=== PATIENT | female | born 1995 | race Caucasian/White ===

== ENCOUNTER 2021-03-05 08:55 | Observation (INO) ==
--- NOTE | 2021-03-05 09:19 | Emergency Department Note ---
History of Present Illness General Chief complaint: Rectal Pain Stated complaint: HEMERRHOIDS,HARD LUMP NEAR RECTUM Time Seen by Provider: 03/05/21 09:07 Source: patient Mode of arrival: ambulatory Limitations: no limitations History of Present Illness Provider complaint: Rectal pain Maximum Pain Intensity: 8 This is a 25-year-old female who presents to the ED with a chief complaint of pain in the posterior rectal area. She states the pain is between the anus and the tailbone. She states that it has been intermittently bothering her for the past week. Certain positions seem to bother her more. Touching the area also seems to bother her more. She also noticed a lump near her anus. She has a history of hemorrhoids. Denies any other complaints at this time. Home Medications Medication Instructions Recorded Confirmed Type Control 1 tab PO HS 03/05/21 03/05/21 History ibuprofen 200 mg PO Q6H PRN 03/05/21 03/05/21 History sucralfate 5 ml PO QID 03/05/21 03/05/21 History Allergies Allergy/AdvReac Type Severity Reaction Status Date / Time No Known Allergies Allergy Unverified 03/05/21 10:41 Past Med/Surg History Social History Smoking Status: Never smoker Feels Safe at Home: Yes Review of Systems A total of 10 systems reviewed and were otherwise negative Physical Exam Vital Signs Vital Signs - 24 hr 03/05/21 09:02 03/05/21 10:43 Temperature 36.2 C L Temperature Source Temporal Artery Scan Pulse Rate 100 H Pulse Rate [Right Finger] 103 H Pulse Rhythm [Right Finger] Regular Pulse Strength [Right Finger] Normal Respiratory Rate 16 20 Respiratory Effort / Characteristics Non-Labored Spontaneous Respiratory Depth Normal Respiratory Pattern Regular Blood Pressure 179/109 H Blood Pressure [Right Arm] 154/102 H Blood Pressure Mean 132 Blood Pressure Mean [Right Arm] 119 Blood Pressure Position [Right Arm] Sitting Pulse Oximetry 100 98 Oxygen Delivery Method Room Air Sepsis Recent Fever Within 48 Hours No Sepsis New/Unexplained Change in Mental Status No Sepsis Action Taken by Nursing No Action Required CONSTITUTIONAL/VITAL SIGNS: Reviewed / noted above. GENERAL: Non-toxic in appearance. INTEGUMENTARY: Warm, dry, and [place]. HEAD: Normocephalic. EYES: without scleral icterus or trauma. ENT/OROPHARYNX: clear and moist. LYMPHADENOPATHY/NECK: Is supple without lymphadenopathy or meningismus. RESPIRATORY: Lungs clear and equal. CARDIOVASCULAR: Regular rate and rhythm. GI/ABDOMEN: Soft and nontender. No organomegaly or pulsatile mass. No rebound or guarding. Normal bowel sounds. EXTREMITIES: Warm and well perfused. BACK: No CVA tenderness. NEUROLOGICAL: Intact without focal deficits. PSYCHIATRIC: normal affect. MUSCULOSKELETAL: Normally developed with good muscle tone. Rectal area: There is a small nonengorged hemorrhoid at the 5 o'clock position. This is noninflamed or irritated. There is some tissue thickening and tenderne ss to palpation of the tissue between the anus and the coccyx. No erythema or warmth. No obvious visible change. TRIAGE NURSING DOCUMENTATION REVIEWED. Course Administered Medications Discontinued Medications Ioversol (Optiray 320 100ml) 89 ml IV ONCE ONE Stop: 03/05/21 10:35 Last Admin: 03/05/21 10:35 Dose: 89 ml Documented by: [id number] Medical Decision Making Differential Diagnosis Differential includes perirectal abscess, rectal abscess, hemorrhoid, infection/cellulitis, trauma Medical Records Attestation: I reviewed the patient's medical records. Home Medications Current Medication List: was personally reviewed by me Laboratory Data Attestation: I reviewed the patient's lab results. Result diagrams: 03/05/21 09:32 03/05/21 09:32 Lab Results 03/05/21 03/05/21 03/05/21 Range/Units 09:32 09:32 09:54 WBC 12.84 H (4.8-10.8) K/uL RBC 4.36 (4.2-5.4) M/uL Hgb 12.2 (12.0-16.0) g/dL Hct 36.3 L (37-47) % MCV 83.3 (80-100) fL MCH 28.0 (25-34) pg MCHC 33.6 (32-36) g/dL RDW Std Deviation 40.5 (36.4-46.3) fL RDW Coeff of Sarbjit 13.3 (11.5-14.5) % Plt Count 328 (130-400) K/uL MPV 11.4 H (7.4-10.4) fL Immature Gran % (Auto) 0.3 % Neut % (Auto) 72.6 % Lymph % (Auto) 20.2 % [place] % (Auto) 6.0 % Eos % (Auto) 0.7 % Baso % (Auto) 0.2 % Neut # (Auto) 9.33 H (1.4-6.5) K/uL Lymph # (Auto) 2.59 (1.2-3.4) K/uL [place] # (Auto) 0.77 H (0.11-0.59) K/uL Eos # (Auto) 0.09 (0-0.5) K/uL Baso # (Auto) 0.02 (0-0.2) K/uL Immature Gran # (Auto) 0.04 H (0.00-0.02) K/uL Sodium 138 (136-145) mmol/L Potassium 3.6 (3.5-5.1) mmol/L Chloride 108 H (98-107) mmol/L Carbon Dioxide 22 (21-32) mmol/L Anion Gap 8.0 (3-11) BUN 8 (7-18) mg/dl Creatinine 0.79 (0.6-1.2) mg/dl Est Cr Clr Drug Dosing 139.0 ml/min Est GFR ( Amer) 121.4 ml/min Est GFR (Non-Af Amer) 104.8 ml/min BUN/Creatinine Ratio 10.2 (10-20) Glucose 99 (70-99) mg/dl Calcium 8.7 (8.5-10.1) mg/dl POC Ur Test NEG (NEG) Imaging Data Radiologist's Impression: Pelvis CT 03/05/21 09:13 CT SCAN OF THE PELVIS WITH IV CONTRAST CLINICAL HISTORY: Perirectal pain. COMPARISON STUDY: No priors. TECHNIQUE: Following the IV administration of 89 cc of Optiray 320, CT scan of the pelvis is performed from the pelvic inlet to the proximal femora. Images are reviewed in the axial, sagittal, and coronal planes. IV contrast was administered without complication. A dose lowering technique was utilized adhering to the principles of ALARA. CT DOSE: 1176.82 mGy.cm FINDINGS: The bladder, uterus, and adnexa are normal as visualized noting bilateral ovarian follicles. There is no free fluid in the cul-de-sac. No pelvic sidewall or inguinal lymphadenopathy is identified. Visualized portions of the small bowel and colon are normal in caliber. A normal appendix is identified in the right lower quadrant. No evidence of intraperitoneal free air is seen. There is a 1.7 x 3.8 x 1.4 cm posterior perianal fluid collection. This is best seen on axial image #720, and is located at the 6:00 position. This is located below the levator sling. No fistula is clearly identified. There is only minimal surrounding soft tissue infiltration. The bony pelvis is intact. No lytic or blastic lesion is seen. The joint spaces of the hips are maintained. The sacroiliac joints are normal. The regional musculature is normal and symmetric. IMPRESSION: 1. Findings are consistent with a perianal abscess as detailed above. 2. The pelvic viscera is normal as visualized. ACT 112: Negative or not required by law. Electronically signed by: Tyler See M.D. 03/05/2021 11:13 AM MDM Narrative Patient presents with pain in the posterior rectal region. There is some tenderness noted in the area. CT scan as above shows a perirectal abscess. For blood cell count was 12. Dr. Okeefe has been consulted. He is taking the patient to the OR for abscess drainage. Impression & Plan Abscess, perirectal Discharge Plan Visit Data Chief Complaint: Rectal Pain Stated Complaint: HEMERRHOIDS,HARD LUMP NEAR RECTUM ED Provider: Kyle Boggs Discharge Problem: Abscess, perirectal Patient Disposition: Being Evaluated by Surgeon Forms Stand Alone Forms: [facility] [place] Prescriptions Prescriptions: No Action sucralfate 100 mg/mL Suspension 5 ml PO QID RF: 0 ibuprofen 200 mg Tablet 200 mg PO Q6H PRN (Reason: Pain) RF: 0 Control 1 tab PO HS RF: 0 Referrals Referrals: PCP,NO [Primary Care Provider] -
[2021-03-05 09:41] LABS: Basophils # (auto) 0.02 K/uL (0-0.2); Basophils % (auto) 0.2 %; Eosinophils # (auto) 0.09 K/uL (0-0.5); Eosinophils % (auto) 0.7 %; Hematocrit (blood only) 36.3 % (37-47); Hemoglobin 12.2 g/dL (12.0-16.0); Immature Granulocytes # (auto) 0.04 K/uL (0.00-0.02); Immature Granulocytes % (auto) 0.3 %; Lymphocytes # (auto) 2.59 K/uL (1.2-3.4); Lymphocytes % (auto) 20.2 %; Mean Corpuscular Hgb Conc 33.6 g/dL (32-36); Mean Corpuscular Volume 83.3 fL (80-100); Mean Platelet Volume 11.4 fL (7.4-10.4); Monocytes # (auto) 0.77 K/uL (0.11-0.59); Neutrophils # (auto) 9.33 K/uL (1.4-6.5); Neutrophils % (auto) 72.6 %; Platelet Count 328 K/uL (130-400); RDW Coefficient of Variation 13.3 % (11.5-14.5); RDW Standard Deviation 40.5 fL (36.4-46.3); Red Blood Count 4.36 M/uL (4.2-5.4); White Blood Count 12.84 K/uL (4.8-10.8)
[2021-03-05 09:56] LABS: BUN Creatinine Ratio 10.2 (10-20); Calcium 8.7 mg/dl (8.5-10.1); Est GFR (African American) 121.4 ml/min; Est GFR (Non-African American) 104.8 ml/min; Potassium 3.6 mmol/L (3.5-5.1)
[2021-03-05] MEDS ORDERED: OPTIRAY 320 100ml IV ONE (10:34)
--- NOTE | 2021-03-05 11:14 | CT Scan Report ---
CT SCAN OF THE PELVIS WITH IV CONTRAST CLINICAL HISTORY: Perirectal pain. COMPARISON STUDY: No priors. TECHNIQUE: Following the IV administration of 89 cc of Optiray 320, CT scan of the pelvis is performe d from the pelvic inlet to the proximal femora. Images are reviewed in the axial, sagittal, and coron al planes. IV contrast was administered without complication. A dose lowering technique was utilized adhering to the principles of ALARA. CT DOSE: 1176.82 mGy.cm FINDINGS: The bladder, uterus, and adnexa are normal as visualized noting bilateral ovarian follicles. There is no free fluid in the cul-de-sac. No pelvic sidewall or inguinal lymphadenopathy is identified. Visua lized portions of the small bowel and colon are normal in caliber. A normal appendix is identified in the right lower quadrant. No evidence of intraperitoneal free air is seen. There is a 1.7 x 3.8 x 1.4 cm posterior perianal fluid collection. This is best seen on axial image # 720, and is located at the 6:00 position. This is located below the levator sling. No fistula is ghazal rly identified. There is only minimal surrounding soft tissue infiltration. The bony pelvis is intact. No lytic or blastic lesion is seen. The joint spaces of the hips are maint ained. The sacroiliac joints are normal. The regional musculature is normal and symmetric. IMPRESSION: 1. Findings are consistent with a perianal abscess as detailed above. 2. The pelvic viscera is normal as visualized. ACT 112: Negative or not required by law. Electronically signed by: Tyler See M.D. 03/05/2021 11:13 AM
--- NOTE | 2021-03-05 13:55 | Surgery Consultation ---
Date of Consultation March 05, 2021 Assessment & Plan (1) Abscess, perirectal: pt is a 25 year-old female who presents to ER with one week history rectal pain, IMP; perirectal abscess Plan, I recommend to do I/D perirectal abscess, D/W benefits, risks and alternatives of the surgery, the risks - infection, bleeding sepsis, recurrence, pt understood, she agrees with the surgery, I answered all questions, pre-op antibiotic, Present on Admission?: Yes History of Present Illness History of Present Illness History of Present Illness General Chief complaint: Rectal Pain Stated complaint: HEMERRHOIDS,HARD LUMP NEAR RECTUM Time Seen by Provider: 03/05/21 09:07 Source: patient Mode of arrival: ambulatory Limitations: no limitations History of Present Illness Provider complaint: Rectal pain Maximum Pain Intensity: 8 This is a 25-year-old female who presents to the ED with a chief complaint of pain in the posterior rectal area. She states the pain is between the anus and the tailbone. She states that it has been intermittently bothering her for the past week. Certain positions seem to bother her more. Touching the area also seems to bother her more. She also noticed a lump near her anus. She has a history of hemorrhoids. Denies any other complaints at this time. I ( Kat Okeefe MD) got a call for consult perirectal abscess, I reviewed pt's H/P, labs, CT scan with pt, Home Medications Medication Instructions Recorded Confirmed Type Control 1 tab PO HS 03/05/21 03/05/21 History ibuprofen 200 mg PO Q6H PRN 03/05/21 03/05/21 History sucralfate 5 ml PO QID 03/05/21 03/05/21 History Allergies Allergy/AdvReac Type Severity Reaction Status Date / Time No Known Allergies Allergy Unverified 03/05/21 10:41 Past Med/Surg History Social History Smoking Status: Never smoker Feels Safe at Home: Yes Review of Systems A total of 10 systems reviewed and were otherwise negative Allergies Allergy/AdvReac Type Severity Reaction Status Date / Time No Known Allergies Allergy Unverified 03/05/21 10:41 Home Medications Medication Instructions Recorded Confirmed Type Control 1 tab PO HS 03/05/21 03/05/21 History ibuprofen 200 mg PO Q6H PRN 03/05/21 03/05/21 History sucralfate 5 ml PO QID 03/05/21 03/05/21 History Patient History Medical History (Updated 03/05/21 @ 13:36 by Wally Huang MD) Obesity Social History Smoking Status: Never smoker Feels Safe at Home: Yes Physical Exam Constitutional: WD/WN, vitals as above well developed and well nourished Eyes: PERRL, conjunctivae normal, anicteric sclerae ENMT: external ear and nose normal, oropharynx normal Neck: trachea midline, no thyromegaly Respiratory: normal respiratory effort, lungs clear to auscultation normal respiratory effort Cardiovascular: RRR, no murmur, no edema Rate/Rhythm: regular rate and regular rhythm Gastrointestinal (Abdomen): normal bowel sounds, soft, nontender, no hepatosplenomegaly rectal exam- tenderness at 6 O'clock with redness, Musculoskeletal: no cyanosis or clubbing, extremities motor strength 5/5 Neurologic: awake Psychiatric: Orientation: alert and oriented x 3 Results & Data ([facility]) Vital Signs (Past 12 Hours) Vital Signs Temp Pulse Pulse Resp BP BP Pulse Ox 03/05/21 13:37 107 H 20 139/95 100 03/05/21 11:30 107 H 20 137/97 99 03/05/21 10:43 103 H 20 154/102 H 98 03/05/21 09:02 36.2 C L 100 H 16 179/109 H 100 Laboratory Results Abnormal lab results 03/05/21 03/05/21 Range/Units 09:32 09:32 WBC 12.84 H (4.8-10.8) K/uL Hct 36.3 L (37-47) % MPV 11.4 H (7.4-10.4) fL Neut # (Auto) 9.33 H (1.4-6.5) K/uL [place] # (Auto) 0.77 H (0.11-0.59) K/uL Immature Gran # (Auto) 0.04 H (0.00-0.02) K/uL Chloride 108 H (98-107) mmol/L Diagnostic Findings CT SCAN OF THE PELVIS WITH IV CONTRAST CLINICAL HISTORY: Perirectal pain. COMPARISON STUDY: No priors. TECHNIQUE: Following the IV administration of 89 cc of Optiray 320, CT scan of the pelvis is performed from the pelvic inlet to the proximal femora. Images are reviewed in the axial, sagittal, and coronal planes. IV contrast was administ ered without complication. A dose lowering technique was utilized adhering to the principles of ALARA. CT DOSE: 1176.82 mGy.cm FINDINGS: The bladder, uterus, and adnexa are normal as visualized noting bilateral ovarian follicles. There is no free fluid in the cul-de-sac. No pelvic sidewall or inguinal lymphadenopathy is identified. Visualized portions of the small bowel and colon are normal in caliber. A normal appendix is identified in the right lower quadrant. No evidence of intraperitoneal free air is seen. There is a 1.7 x 3.8 x 1.4 cm posterior perianal fluid collection. This is best seen on axial image #720, and is located at the 6:00 position. This is located below the levator sling. No fistula is clearly identified. There is only minimal surrounding soft tissue infiltration. The bony pelvis is intact. No lytic or blastic lesion is seen. The joint spaces of the hips are maintained. The sacroiliac joints are normal. The regional musculature is normal and symmetric. IMPRESSION: 1. Findings are consistent with a perianal abscess as detailed above. 2. The pelvic viscera is normal as visualized.
[2021-03-05] MEDS ORDERED: ceFAZolin 2000MG 2,000 MG/15 ML SYR IV SCH (13:59)
--- NOTE | 2021-03-05 13:59 | History & Physical Bridge Note ---
Date of Service March 05, 2021 History & Physical Bridge Note I have examined the patient, reviewed the History & Physical and in the interval since the performance of the History & Physical I have noted the following changes of clinical significance: no changes noted
--- NOTE | 2021-03-05 15:09 | Anesthesiology Consultation ---
Date of Service March 05, 2021 Assessment & Plan (1) Encounter for pre-operative examination: Chart Review Chart Review: Acceptable Risk for Surgery History Surgery Operation Date: 03/05/21 07:45 Proposed Procedures p Incision and Drainage Perirectal Abscess - Kat Okeefe MD Height/Weight Height: 5 ft 7 in Weight: 108 kg Allergies Allergy/AdvReac Type Severity Reaction Status Date / Time No Known Allergies Allergy Unverified 03/05/21 10:41 Medications Home Medications Medication Instructions Recorded Confirmed Last Taken Control 1 tab PO HS 03/05/21 03/05/21 03/04/21 ibuprofen 200 mg PO Q6H PRN 03/05/21 03/05/21 03/05/21 05:00 800 mg sucralfate 5 ml PO QID 03/05/21 03/05/21 03/04/21 18:00 5 ml NPO Date Last Intake of Fluids: 03/05/21 Time Last Intake of Fluids: 11:00 Date Last Intake of Solids: 03/05/21 Time Last Intake of Solids: 08:30 Past Medical History Medical History Obesity Social History Smoking Status: Never smoker Physical Exam Vital Signs Last Vital Signs Temp 36.6 C 03/05/21 14:08 Pulse 120 H 03/05/21 14:08 Resp 18 03/05/21 14:08 BP 156/109 H 03/05/21 14:08 Pulse Ox 97 03/05/21 14:08 Testing Laboratory Results 03/05/21 09:32 03/05/21 09:32 03/05/21 09:54 POC Ur Test NEG
[2021-03-05] MEDS ORDERED: KETOROLAC 30 MG/ML VIAL IV PRN (15:37)
[2021-03-05] MEDS ORDERED: ATROPINE SULFATE 0.1 MG/ML 10ML SYR IV PRN (15:37)
[2021-03-05] MEDS ORDERED: LABETALOL HCL IV 5 MG/ML 20ML IV PRN (15:37)
[2021-03-05] MEDS ORDERED: PROMETHAZINE HCL 6.25 MG in SODIUM CHLORIDE 0.9% 50 ML IV PRN (15:37)
[2021-03-05] MEDS ORDERED: ONDANSETRON INJ 2 MG/ML 2 ML VIAL IV PRN ×2 (15:37→19:15)
[2021-03-05] MEDS ORDERED: ONDANSETRON INJ 2 MG/ML 2 ML VIAL ONE (16:05)
[2021-03-05] MEDS ORDERED: MIDAZOLAM HCL 1 MG/ML 2ML VIAL ONE (16:05)
[2021-03-05] MEDS ORDERED: PROPOFOL IV EMULSION 10 MG/ML 20 ML VIAL IV ONE (16:05)
[2021-03-05] MEDS ORDERED: DEXAMETHASONE SOD INJ 4 MG/ML VIAL ONE (16:05)
[2021-03-05] MEDS ORDERED: fentaNYL citrate 100 MCG/2 ML VIAL ONE (16:05)
[2021-03-05] MEDS ORDERED: LIDOCAINE 2% 20 MG/ML 5 ML SYR IV ONE ×2 (16:05→16:07)
[2021-03-05] MEDS ORDERED: GELATIN SPONGE 12-7MM ONE (16:28)
[2021-03-05] MEDS ORDERED: BUPIVACAINE 0.5 % 5 MG/1 ML MPF 30ML VIAL ONE (16:28)
[2021-03-05] MEDS ORDERED: LIDOCAINE 1% LOCAL 20 ML VIAL ONE (16:28)
[2021-03-05] MEDS ORDERED: BACITRACIN OINT 15 GM TUBE ONE (16:56)
--- NOTE | 2021-03-05 17:05 | Post Operative Brief Note ---
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
[2021-03-05] MEDS: fentaNYL citrate 100 MCG/2 ML VIAL IV PRN ×4 (17:25→17:44)
--- NOTE | 2021-03-05 17:57 | Operative Report (OR) ---
DATE OF OPERATION: 03/05/2021 PREOPERATIVE DIAGNOSIS: Perirectal abscess. POSTOPERATIVE DIAGNOSIS: Perirectal abscess. PROCEDURE: Incision and drainage of perirectal abscess. SURGEON: Kat Okeefe MD. ANESTHESIA: General. ESTIMATED BLOOD LOSS: About 5 mL FINDINGS: Perirectal abscess, wound culture sent. COMPLICATIONS: None. INDICATIONS FOR THE PROCEDURE: This is a 25-year-old female who presented to ED with one week history of rectal pain. The patient had a CT scan diagnosis of perirectal abscess. I recommended to do incision and drainage of perirectal abscess. I did talk to the patient about the benefit, the risk, alternate procedure. I indicated the risks may include but not limited such as bleeding, infection, recurrence, may need more procedures, sepsis. The patient understands. She signed informed consent and I answered all questions. DETAILS OF PROCEDURE: After identifying the patient and verifying the procedure, we brought the patient to the OR, put the patient in the supine position. The patient received SCD on bilateral legs to prevent DVT. Also, patient received 2 grams Ancef IV for prophylactic antibiotic and the patient received general anesthesia without difficulty. Then we repositioned, and put the patient on the lithotomy position. Rectal area was prepped and draped in routine sterile fashion. After timeout, then we found the patient had an abscess located at the 6 o'clock with the bulging and then we made about a 1.5 cm incision. The pus immediately came out and we cleaned the pus and was sent to wound culture and then we used the bacitracin with quarter-inch packing, packing the wound. Hemostasis was obtained. Then we put the dressing on. The patient tolerated the procedure well. All instrument, needle and sponge count were correct x2 at the end of the case. The patient transferred to recovery room in stable condition. After the procedure, I did talk to the patient about the OR finding and the procedure we did. The patient understands. I attest to the content of the Intraoperative Record and any orders documented therein. Any exception s are noted below.
--- NOTE | 2021-03-05 18:02 | Anesthesiology Progress Note ---
Date of Service March 05, 2021 Anesthesia Post Procedure Vital Signs Vital Signs: Temp Pulse Pulse Pulse Resp BP BP 03/05/21 17:55 36.7 C 106 H 14 144/92 H 03/05/21 17:45 114 H 16 158/89 H 03/05/21 17:35 103 H 14 143/94 H 03/05/21 17:25 107 H 20 157/97 H 03/05/21 17:16 36.9 C 119 H 15 158/92 H 03/05/21 14:08 36.6 C 120 H 18 156/109 H 03/05/21 13:37 107 H 20 139/95 03/05/21 11:30 107 H 20 137/97 03/05/21 10:43 103 H 20 154/102 H 03/05/21 09:02 36.2 C L 100 H 16 179/109 H Pulse Ox 03/05/21 17:55 95 03/05/21 17:45 100 03/05/21 17:35 98 03/05/21 17:25 100 03/05/21 17:16 99 03/05/21 14:08 97 03/05/21 13:37 100 03/05/21 11:30 99 03/05/21 10:43 98 03/05/21 09:02 100 Pain Intensity Bilateral Rectal: Pain Intensity: 3 Transfer of Care Handoff Completed per policy Notes Mental Status: alert / awake / arousable Patient Amnestic to Procedure: Yes Nausea / Vomiting: adequately controlled Pain: adequately controlled Airway Patency, RR, SpO2: stable & adequate BP & HR: stable & adequate Hydration State: stable & adequate Anesthetic Complications: no major complications apparent
[2021-03-05] MEDS ORDERED: PIPERACILLIN/TAZOBACTAM 3.375 GM in DEXTROSE 5% 100 ML IV SCH (19:15)
[2021-03-05] MEDS ORDERED: HYDROmorphone INJ 0.5 MG/0.5 ML SYR IV PRN (19:15)
[2021-03-05] MEDS ORDERED: PIPERACILL/TAZOBAC CONSULT ACTIVE PRN (19:15)
[2021-03-05] MEDS ORDERED: IBUPROFEN 200 MG TAB PO PRN (19:15)
[2021-03-05] MEDS ORDERED: PIPERACILLIN/TAZOBACTAM 4.5 GM in DEXTROSE 5% 100 ML IV ONE (19:30)
[2021-03-05] MEDS: LACTATED RINGER'S 1,000 ML IV SCH (20:09)
[2021-03-05] MEDS: SUCRALFATE 1 GM/10 ML UDC PO SCH (20:38)
[2021-03-05] MEDS: BIRTH CONTROL - ORDER AWAITING ACTION SCH (23:46)
[2021-03-06] MEDS ORDERED: PIPERACILLIN/TAZOBACTAM 4.5 GM in DEXTROSE 5% 100 ML IV SCH (02:00)
[2021-03-06] MEDS: LACTATED RINGER'S 1,000 ML IV SCH (05:34)
[2021-03-06] MEDS: oxyCODONE/ACETAMINOPHEN 5mg/325mg TAB PO PRN ×2 (05:34→10:26)
[2021-03-06 07:02] LABS: Basophils # (auto) 0.01 K/uL (0-0.2); Basophils % (auto) 0.1 %; Hemoglobin 11.4 g/dL (12.0-16.0); Immature Granulocytes # (auto) 0.02 K/uL (0.00-0.02); Immature Granulocytes % (auto) 0.2 %; Lymphocytes # (auto) 1.81 K/uL (1.2-3.4); Lymphocytes % (auto) 17.3 %; Mean Corpuscular Hemoglobin 27.4 pg (25-34); Mean Corpuscular Hgb Conc 33.5 g/dL (32-36); Mean Corpuscular Volume 81.7 fL (80-100); Mean Platelet Volume 11.6 fL (7.4-10.4); Monocytes # (auto) 0.44 K/uL (0.11-0.59); Monocytes % (auto) 4.2 %; Neutrophils # (auto) 8.18 K/uL (1.4-6.5); Neutrophils % (auto) 78.2 %; Platelet Count 311 K/uL (130-400); RDW Coefficient of Variation 13.2 % (11.5-14.5); RDW Standard Deviation 39.5 fL (36.4-46.3); Red Blood Count 4.16 M/uL (4.2-5.4); White Blood Count 10.46 K/uL (4.8-10.8)
--- NOTE | 2021-03-06 09:29 | Anesthesiology Progress Note ---
Date of Service March 06, 2021 Anesthesia Post Procedure Vital Signs Vital Signs: Temp Pulse Pulse Pulse Resp BP BP 03/06/21 07:25 37.0 C 77 18 127/81 03/06/21 04:37 37.1 C 83 12 03/06/21 00:21 37.1 C 83 03/05/21 22:35 37.1 C 92 H 16 03/05/21 21:33 37 C 106 H 18 03/05/21 20:17 37 C 116 H 22 03/05/21 19:27 36.9 C 114 H 15 03/05/21 19:02 36.9 C 110 H 16 03/05/21 18:30 37.4 C 111 H 18 03/05/21 18:10 107 H 16 03/05/21 17:55 36.7 C 106 H 14 03/05/21 17:45 114 H 16 03/05/21 17:35 103 H 14 03/05/21 17:25 107 H 20 03/05/21 17:16 36.9 C 119 H 15 03/05/21 14:08 36.6 C 120 H 18 03/05/21 13:37 107 H 20 139/95 03/05/21 11:30 107 H 20 03/05/21 10:43 103 H 20 BP Pulse Ox 03/06/21 07:25 99 03/06/21 04:37 145/89 H 99 03/06/21 00:21 121/75 98 03/05/21 22:35 141/84 H 97 03/05/21 21:33 151/98 H 96 03/05/21 20:17 164/111 H 97 03/05/21 19:27 140/87 95 03/05/21 19:02 155/100 H 94 03/05/21 18:30 153/100 H 94 03/05/21 18:10 156/97 H 94 03/05/21 17:55 144/92 H 95 03/05/21 17:45 158/89 H 100 03/05/21 17:35 143/94 H 98 03/05/21 17:25 157/97 H 100 03/05/21 17:16 158/92 H 99 03/05/21 14:08 156/109 H 97 03/05/21 13:37 100 03/05/21 11:30 137/97 99 03/05/21 10:43 154/102 H 98 Pain Intensity Bilateral Rectal: Pain Intensity: 5 Notes Mental Status: alert / awake / arousable and participated in evaluation Patient Amnestic to Procedure: Yes Nausea / Vomiting: adequately controlled Pain: adequately controlled Airway Patency, RR, SpO2: stable & adequate BP & HR: stable & adequate Hydration State: stable & adequate Anesthetic Complications: no major complications apparent
--- NOTE | 2021-03-06 10:12 | Progress Note ---
Date of Service F/U S/P I/D perirectal abscess, POD 1 pt is doing better, less pain, the wound is dry, March 06, 2021 Assessment & Plan (1) Abscess, perirectal: pt is a 25 year-old female who presents to ER with one week history rectal pain, IMP; perirectal abscess Plan, I recommend to do I/D perirectal abscess, D/W benefits, risks and alternatives of the surgery, the risks - infection, bleeding sepsis, recurrence, pt understood, she agrees with the surgery, I answered all questions, pre-op antibiotic, 03/06/2021 10:10AM S/P I/D perirectal abscess, POD 1 doing fine, pt wants to go home today, post-op care instruction was given, F/U [facility] wound care center tomorrow, F/U ks prn, Admission and Anticipated Discharge Date Admission Date: March 05, 2021 Physical Exam Constitutional: WD/WN, vitals as above well developed and well nourished Eyes: PERRL, conjunctivae normal, anicteric sclerae ENMT: external ear and nose normal, oropharynx normal Neck: trachea midline, no thyromegaly Respiratory: normal respiratory effort, lungs clear to auscultation normal respiratory effort Cardiovascular: RRR, no murmur, no edema Rate/Rhythm: regular rate and regular rhythm Gastrointestinal (Abdomen): normal bowel sounds, soft, nontender, no hepatosplenomegaly the wound is dry, no active bleeding, Musculoskeletal: no cyanosis or clubbing, extremities motor strength 5/5 Neurologic: awake Psychiatric: Orientation: alert and oriented x 3 Results & Data ([facility]) Vital Signs (Past 12 Hours) Vital Signs Temp Pulse Resp BP BP Pulse Ox 03/06/21 07:25 37.0 C 77 18 127/81 99 03/06/21 04:37 37.1 C 83 12 145/89 H 99 03/06/21 00:21 37.1 C 83 121/75 98 03/05/21 22:35 37.1 C 92 H 16 141/84 H 97 Laboratory Results Abnormal lab results 03/06/21 Range/Units 06:29 RBC 4.16 L (4.2-5.4) M/uL Hgb 11.4 L (12.0-16.0) g/dL Hct 34.0 L (37-47) % MPV 11.6 H (7.4-10.4) fL Neut # (Auto) 8.18 H (1.4-6.5) K/uL
[2021-03-06] MEDS: SUCRALFATE 1 GM/10 ML UDC PO SCH (10:25)
[2021-03-06] MEDS: BIRTH CONTROL - ORDER AWAITING ACTION SCH (10:26)
--- NOTE | 2021-03-06 11:00 | Discharge Summary (DS) ---
ADMITTING DIAGNOSIS: Perirectal abscess. DISCHARGE DIAGNOSIS: Perirectal abscess. OPERATION: Incision and drainage of perirectal abscess. SURGEON: Kat Okeefe MD. DETAILS OF DISCHARGE SUMMARY: This is a 25-year-old female who presented to ED with 1 week history of rectal pain. The patient had a CT scan diagnosis of perirectal abscess. I took the patient to the OR. We did I and D of the perirectal abscess. The patient tolerated the procedure well and we sent a wound culture; the results are pending. The patient doing fine overnight in the hospital. No significant rectal pain. The patient feels better. No fever and white count is normal. PHYSICAL EXAMINATION: VITAL SIGNS: Temperature is 37, heart rate is 77, respiratory rate 18, blood pressure 127/81, O2 saturation 99% on room air. GENERAL: The patient is alert, awake, oriented x3. HEENT: Within normal limitation. NEUROLOGIC: Intact. NECK: No JVD. CHEST: Bilateral lung sounds clear. HEART: Normal S1, S2, no murmur. ABDOMEN: Soft. No tenderness. RECTAL AREA: The wound dressing is intact, no active bleeding. EXTREMITIES: No edema. The patient wanted to go home. We gave the patient postop care instructions. The patient will follow up with [facility] for dressing change. We will follow up the patient as needed. The patient understands. Also, I gave the patient Percocet 5/325 one p.o. q.6 hours p.r.n. for pain and Bactrim 800/160 one pill p.o. 2 times a day x10 days. The patient understands.
== END 2021-03-06 12:02 | disposition home or self-care (01) ==
LOC: ED 08:55 → OR 13:37 → 3N 13:37
DX: K61.1 Rectal abscess